=== PATIENT | female | born 1955 | race African-American/Black ===

== ENCOUNTER 2016-12-22 14:25 | Outpatient (CLI) | payer OTHER ==
--- NOTE | 2016-12-22 18:56 | DIAGNOSTIC IMAGING REPORT ---
PROCEDURE: MG B/L IMPLANTS - SCREENING INDICATION: SCREENING, personal history of bilateral breast surgery as well as saline implants. Family history of breast cancer in the mother TECHNIQUE: Standard CC and MLO views of each breast. Implant displaced views in the CC and MLO projection. CAD was used. COMPARISON: 12/21/2015, 12/19/2014, 03/11/2013 FINDINGS: Intact subpectoral saline implants are present bilaterally. Overlying this, there is moderately dense fibroglandular tissue bilaterally. No developing densities, areas of focal architectural distortion, or suspicious microcalcifications. IMPRESSION: 1. Stable mammograms without radiographic evidence of malignancy. 2. Intact subpectoral saline implants. RESULT CODE: 1- Negative. A. A negative report should not delay biopsy if a dominant or clinically suspicious mass is present. 10-15% of cancers are not identified by x-ray. B. A negative report may reinforce clinical impression. C. Adenosis and dense breasts may obscure an underlying neoplasm. D. False positive reports average 6-10%. E.. A yearly screening mammogram is recommended. A reminder letter will be scheduled.
== END 2016-12-22 23:00 ==
LOC: MAM SRH 14:25
DX: Z12.31 Encounter for screening mammogram for malignant neoplasm of breast (principal); Z80.3 Family history of malignant neoplasm of breast